=== PATIENT | female | born 1980 | race Caucasian/White ===

== ENCOUNTER 2020-05-03 11:36 | Emergency (ER) | payer SELFPAY ==
[~2020-05-03] VITALS: Ht 162.6 cm; Wt 75.0 kg
[2020-05-03] MEDS ORDERED: ASPIRIN 81 MG TABLET CHEW PO ONE (12:30)
[2020-05-03 12:44] LABS: BASOPHILS # (AUTO) 0.05 x10^3/uL (0-0.1); BASOPHILS % (AUTO) 1 % (0-1); EOSINOPHILS # (AUTO) 0.19 x10^3/uL (0-0.4); EOSINOPHILS % (AUTO) 2 % (1-7); LYMPHOCYTES # (AUTO) 1.95 x10^3/uL (1-3.4); LYMPHOCYTES % (AUTO) 23 % (22-44); MD NO; MEAN CORPUSCULAR HGB CONC 33.4 g/dL (32.4-35.8); MEAN CORPUSCULAR VOLUME 92.8 fL (80-100); MEAN PLATELET VOLUME 8.2 fL (7.4-10.4); MONOCYTES # (AUTO) 0.64 x10^3/uL (0.2-0.8); MONOCYTES % (AUTO) 8 % (2-9); NEUTROPHILS # (AUTO) 5.69 x10^3/uL (1.8-6.8); NEUTROPHILS % (AUTO) 67 % (42-75); PLATELET COUNT 383 x10^3/uL (130-400); RED BLOOD COUNT 4.64 x10^6/uL (3.82-5.3); RED CELL DISTRIBUTION WIDTH 13.2 % (9.6-15.2)
[2020-05-03 12:55] LABS: ALANINE AMINOTRANSFERASE 16 U/L (12-78); ALBUMIN 3.5 g/dL (3.4-5.0); ANION GAP 4 mmol/L (5-15); CALCIUM 9.3 mg/dL (8.5-10.1); CHLORIDE 109 mmol/L (98-107); CREATININE 0.75 mg/dL (0.55-1.02)
[2020-05-03 13:00] LABS: ALKALINE PHOSPHATASE 97 U/L (45-117); BILIRUBIN,TOTAL 0.4 mg/dL (0.2-1.0); TOTAL PROTEIN 7.3 g/dL (6.4-8.2); TROPONIN I < 0.015 ng/mL (0.000-0.045)
[2020-05-03 15:00] VITALS: BP 111/79
[2020-05-03] MEDS ORDERED: LIDOCAINE 1%-EPI 1:100K, 20ML SQ ONE (15:30)
[2020-05-03] MEDS ORDERED: LIDOCAINE 1%-EPI 1:100K, 20ML ONE (15:31)
== END 2020-05-03 16:15 | disposition home or self-care (01) ==
LOC: ED 13:27
DX: R07.89 Other chest pain (principal); L02.412 Cutaneous abscess of left axilla; E16.2 Hypoglycemia, unspecified; F15.10 Other stimulant abuse, uncomplicated; R94.31 Abnormal electrocardiogram [ECG] [EKG]
CPT/HCPCS: 10060; 36415; 71046; 80053; 82962; 83690; 84484; 85025; 87070; 87077; 87186; 87205; 93005; 99285